=== PATIENT | male | born 1960 | race Caucasian/White ===

== ENCOUNTER 2020-09-23 13:16 | Emergency (ER) | payer OTHER ==
[~2020-09-23] VITALS: Ht 193 cm; Wt 88.9 kg
--- NOTE | 2020-09-23 13:52 | NUR ---
pt states he fell out of his truck. on his behind. had a R hip replacement 4 years ago.
--- NOTE | 2020-09-23 14:24 | NUR ---
pt down to xray
--- NOTE | 2020-09-23 15:33 | NUR ---
MILIND RN: PT RESTING IN ROOM. PT TO GET A CT. NO ACUTE DISTRESS NOTED. CALL LIGHT IN PLACE.
--- NOTE | 2020-09-23 15:43 | NUR ---
REPORT GIVEN TO DORIS CH
[2020-09-23 16:41] VITALS: BP 147/94
--- NOTE | 2020-09-23 16:42 | NUR ---
pt in bed no distress
== END 2020-09-23 17:22 | disposition home or self-care (01) ==
LOC: ED 14:16
DX: G89.11 Acute pain due to trauma (principal); M25.551 Pain in right hip; F17.210 Nicotine dependence, cigarettes, uncomplicated; Z96.641 Presence of right artificial hip joint; W00.0XXA Fall on same level due to ice and snow, initial encounter; Y93.39 Activity, other involving climbing, rappelling and jumping off; Y92.098 Other place in other non-institutional residence as the place of occurrence of the external cause; Y99.8 Other external cause status
CPT/HCPCS: 99285; 99406

== ENCOUNTER 2020-10-11 12:07 | Emergency (ER) | payer SELFPAY ==
[~2020-10-11] VITALS: Ht 193 cm; Wt 88.8 kg
--- NOTE | 2020-10-11 12:43 | NUR ---
PT COMES IN TODAY C/O KURTZ, SOB, SORE THROAT, CHILLS, BODY ACHES, GENERALIZED WEAKNESS, LOSS OF SENSE OF TASTE/SMELL X4DAYS. PT STATES HE WAS RECENTLY "AROUND SOMEONE WHO HAS COVID". PT TEARFUL WHEN INQUIRING ABOUT SUICIDE. STATES "THE OTHER DAY I FELT LIKE IT" SUICIDE ASSESSMENT COMPLETE. PT STATES NO DESIRE TO TAKE HIS LIFE AT THIS TIME AND STATES NO PLAN. MONITORS CONNECTED. VSS. WARM BLANKETS PROVIDED. CALL LIGHT W/IN REACH
--- NOTE | 2020-10-11 14:43 | NUR ---
BREAK RN: PT GIVEN COMMODE, STEADY GAIT TO AMUBLATE TO COMMODE.
--- NOTE | 2020-10-11 14:52 | NUR ---
PT RESTING ON GURNEY. C/O 03/05 HEADACHE. CXR COMPLETE. VSS. NAD. WILL CONTINUE TO MONITOR
[2020-10-11] MEDS ORDERED: MECLIZINE CHEWABLE 25 MG TAB PO ONE (15:00)
[2020-10-11 15:18] LABS: BASOPHILS % (AUTO) 1 % (0-1); EOSINOPHILS % (AUTO) 1 % (1-7); LYMPHOCYTES % (AUTO) 20 % (22-44); MEAN CORPUSCULAR HEMOGLOBIN 32.5 pg (27.5-34.5); MEAN PLATELET VOLUME 7.2 fL (7.4-10.4); MONOCYTES % (AUTO) 9 % (2-9); NEUTROPHILS % (AUTO) 68 % (42-75); PLATELET COUNT 344 x10^3/uL (130-400); RED BLOOD COUNT 5.11 x10^6/uL (4.38-5.82); RED CELL DISTRIBUTION WIDTH 13.8 % (9.4-14.8)
[2020-10-11 15:29] LABS: ALBUMIN 3.4 g/dL (3.4-5.0); ANION GAP 7 mmol/L (5-15); CALCIUM 8.7 mg/dL (8.5-10.1); CHLORIDE 108 mmol/L (98-107); CREATININE 0.92 mg/dL (0.7-1.3)
[2020-10-11 15:45] LABS: MD NO
[2020-10-11] MEDS ORDERED: MECLIZINE CHEWABLE 25 MG TAB ONE (15:58)
[2020-10-11 16:01] VITALS: BP 125/75
--- NOTE | 2020-10-11 16:01 | NUR ---
PT GIVEN ROAST BEEF SANDWHICH MEAL TRAY. MEDICATED PER ORDERS. GIVEN DC INSTRUCTIONS. NO FURTHER QUESTIONS.
== END 2020-10-11 17:17 | disposition home or self-care (01) ==
LOC: ED 14:30
DX: R42 Dizziness and giddiness (principal); Z20.822 Contact with and (suspected) exposure to COVID-19; R94.31 Abnormal electrocardiogram [ECG] [EKG]; R51.9 Headache, unspecified
CPT/HCPCS: 70450; 71045; 80048; 82040; 85025; 87635; 93005; 99285

== ENCOUNTER 2021-03-23 14:54 | Emergency (ER) | payer OTHER ==
[~2021-03-23] VITALS: Ht 193 cm; Wt 84.9 kg
--- NOTE | 2021-03-23 15:19 | NUR ---
chemical process operator: Pt ambulatory to room from lobby at this time.
--- NOTE | 2021-03-23 15:36 | NUR ---
ASSUMED CARE OF PATIENT. PATIENT REPORTS HE HAS A LEFT ARM ABSCESS THAT IS GETTING MORE RED AND INCREASED PAIN. VS STABLE. CALL LIGHT IN PLACE. WILL CONTINUE TO MONITOR.
[2021-03-23] MEDS ORDERED: LIDOCAINE-MPF 1%, 5ML ONE (16:25)
[2021-03-23] MEDS ORDERED: LIDOCAINE-MPF 1%, 5ML INFIL ONE (16:30)
--- NOTE | 2021-03-23 16:43 | NUR ---
PT RESTING IN ROOM. VS STABLE. CALL LIGHT IN PLACE. WILL CONTINUE TO MONITOR.
[2021-03-23 18:00] VITALS: BP 129/101
== END 2021-03-23 18:02 | disposition home or self-care (01) ==
LOC: ED 17:30
DX: L02.414 Cutaneous abscess of left upper limb (principal)
CPT/HCPCS: 10060; 12001; 99282

== ENCOUNTER 2021-05-05 10:10 | Emergency (ER) | payer OTHER ==
[~2021-05-05] VITALS: Ht 193 cm; Wt 85.4 kg
[2021-05-05 10:21] VITALS: BP 119/77
[2021-05-05 11:55] LABS: BASOPHILS % (AUTO) 1 % (0-1); EOSINOPHILS % (AUTO) 1 % (1-7); LYMPHOCYTES % (AUTO) 9 % (22-44); MEAN CORPUSCULAR HGB CONC 33.3 g/dL (33.2-36.2); MEAN PLATELET VOLUME 7.7 fL (7.4-10.4); MONOCYTES % (AUTO) 8 % (2-9); NEUTROPHILS % (AUTO) 82 % (42-75); PLATELET COUNT 321 x10^3/uL (130-400); RED BLOOD COUNT 5.05 x10^6/uL (4.38-5.82); RED CELL DISTRIBUTION WIDTH 13.9 % (9.4-14.8)
[2021-05-05 11:59] LABS: ALANINE AMINOTRANSFERASE 23 U/L (12-78); ALBUMIN 3.5 g/dL (3.4-5.0); ANION GAP 6 mmol/L (5-15); CALCIUM 8.7 mg/dL (8.5-10.1); CHLORIDE 107 mmol/L (98-107); CREATININE 1.03 mg/dL (0.7-1.3)
[2021-05-05 12:01] LABS: ALKALINE PHOSPHATASE 170 U/L (45-117); BILIRUBIN,TOTAL 0.6 mg/dL (0.2-1.0); TOTAL PROTEIN 7.3 g/dL (6.4-8.2)
--- NOTE | 2021-05-05 15:59 | NUR ---
REVOLVING INVENTORY CLERK: CALLED FOR ROOM, NO ANSWER
--- NOTE | 2021-05-05 16:12 | NUR ---
DIESEL PILE HAMMER OPERATOR: CALLED FOR ROOM, NO ANSWER
--- NOTE | 2021-05-05 16:37 | NUR ---
ICE CREAM VAULT WORKER: CALLED FOR ROOM, NO ANSWER
== END 2021-05-05 16:43 | disposition left against medical advice (07) ==
LOC: ED 12:51
DX: R10.13 Epigastric pain (principal); R10.33 Periumbilical pain
CPT/HCPCS: 36415; 76700; 80053; 83690; 85025; 93005; 99285